=== PATIENT | male | born 1980 | race Caucasian/White ===

== ENCOUNTER 2021-08-06 14:50 | Emergency (ER) | payer OTHER ==
[~2021-08-06 14:50] MED LIST: BACTRIM DS TAB1 EACH PO; BACTROBAN OINT22 GM EXT; KEFLEX CAP 500500 MG PO
[2021-08-06 16:11] LABS: HEMOGLOBIN 14.6 gm/dl (14.0-17.5); RED BLOOD COUNT 4.91 M/UL (4.20-5.50); WHITE BLOOD COUNT 5.7 K/UL (4.5-11.0)
[2021-08-06 16:45] LABS: BUN/CREATININE RATIO 17 (0-10)
[2021-08-06] MEDS ORDERED: IBUPROFEN800 MG PO (18:38)
== END 2021-08-06 19:25 | disposition home or self-care (01) ==
LOC: ER1 14:50
PROVIDERS: Physician Assistant
DX: S16.1XXA Strain of muscle, fascia and tendon at neck level, initial encounter (principal); S00.83XA Contusion of other part of head, initial encounter; S70.02XA Contusion of left hip, initial encounter; S40.011A Contusion of right shoulder, initial encounter; M51.36 Other intervertebral disc degeneration, lumbar region; I10 Essential (primary) hypertension; F17.200 Nicotine dependence, unspecified, uncomplicated; V49.9XXA Car occupant (driver) (passenger) injured in unspecified traffic accident, initial encounter
CPT/HCPCS: 70450; 70486; 71260; 72125; 72131; 73030; 73502; 80053; 81001; 82550; 82553; 83690; 84484; 85025; 93005; 96374; 99284; J1885; Q9967

== ENCOUNTER 2021-11-07 19:48 | Inpatient (IN) | payer OTHER ==
[~2021-11-07] VITALS: Ht 152.4 cm; Wt 79.4 kg
[~2021-11-07 19:48] MED LIST changes: +IBUPROFEN800 MG PO
[2021-11-07 20:36] LABS: HEMOGLOBIN 14.7 gm/dl (14.0-17.5); RED BLOOD COUNT 4.86 M/UL (4.20-5.50); WHITE BLOOD COUNT 11.7 K/UL (4.5-11.0)
[2021-11-07 20:50] LABS: BUN/CREATININE RATIO 18 (0-10)
[2021-11-09 05:07] LABS: HEMOGLOBIN 12.2 gm/dl (14.0-17.5); RED BLOOD COUNT 4.11 M/UL (4.20-5.50); WHITE BLOOD COUNT 7.1 K/UL (4.5-11.0)
[2021-11-09 05:13] LABS: BUN/CREATININE RATIO 22 (0-10)
[2021-11-10] MEDS ORDERED: ENDOCET 10-3251 EACH PO (12:51)
[2021-11-10] MEDS ORDERED: ZOFRAN 4 MG TAB4 MG PO (12:51)
[2021-11-10] MEDS ORDERED: CYCLOBENZAPRINE10 MG PO (12:51)
[2021-11-11 04:47] LABS: HEMOGLOBIN 10.5 gm/dl (14.0-17.5)
[2021-11-11 04:50] LABS: RED BLOOD COUNT 3.57 M/UL (4.20-5.50); WHITE BLOOD COUNT 10.5 K/UL (4.5-11.0)
[2021-11-11 05:13] LABS: BUN/CREATININE RATIO 28 (0-10)
[2021-11-12 02:11] LABS: HEMOGLOBIN 10.5 gm/dl (14.0-17.5); RED BLOOD COUNT 3.55 M/UL (4.20-5.50); WHITE BLOOD COUNT 11.3 K/UL (4.5-11.0)
[2021-11-12 02:27] LABS: BUN/CREATININE RATIO 31 (0-10)
[2021-11-13 05:23] LABS: HEMOGLOBIN 10.7 gm/dl (14.0-17.5); RED BLOOD COUNT 3.63 M/UL (4.20-5.50)
[2021-11-13 05:27] LABS: WHITE BLOOD COUNT 5.5 K/UL (4.5-11.0)
[2021-11-13 05:52] LABS: BUN/CREATININE RATIO 27 (0-10)
[2021-11-14 03:33] LABS: HEMOGLOBIN 10.8 gm/dl (14.0-17.5); RED BLOOD COUNT 3.73 M/UL (4.20-5.50); WHITE BLOOD COUNT 6.5 K/UL (4.5-11.0)
[2021-11-14 04:00] LABS: BUN/CREATININE RATIO 25 (0-10)
[2021-11-15 02:39] LABS: HEMOGLOBIN 12.5 gm/dl (14.0-17.5); RED BLOOD COUNT 4.22 M/UL (4.20-5.50); WHITE BLOOD COUNT 8.2 K/UL (4.5-11.0)
[2021-11-15 03:11] LABS: BUN/CREATININE RATIO 29 (0-10)
[2021-11-15] MEDS ORDERED: SULFAMETHOXAZO1 EACH PO ×2 (09:45→15:42)
[2021-11-15] MEDS ORDERED: LEVOFLOXACIN500 MG PO ×2 (09:45→15:42)
[2021-11-15] MEDS ORDERED: LISINOPRIL5 MG PO ×2 (09:45→15:42)
--- NOTE | 2021-11-15 15:16 | NUR ---
JUST SPOKE WITH PT HE HAS CHANGED HIS MIND ABOUT GOING TO REHAB. PT HAS VOICED THAT HE WOULD LIKE TO GO HOME AND THAT HIS PARTNER CAN TAKE CARE OF HIS BANDAGES. NOTIFIED CASE MANAGEMENT OF THE CHANGE IN PLACEMENT AND REFUSAL TO GO TO REHAB. WITH JAMES ON THE PHONE PT VOICED THAT THEY CAN AFFORD THE BANDAGES. JAMES NOTIFIED DR. HAGEN AND THE PT WILL BE DISCHARGED HOME WITH MEDICATIONS. PT SHOULD FOLLOW DISCHARGE INSTRUCTIONS AND SCHEDULED APPT FOR AFTER CARE DIRECTED BY PHYSICIAN. RETURN TO THE ER WITH NEW OR CHANGING SYMPTOMS.
== END 2021-11-15 16:07 | disposition home or self-care (01) | DRG 475 ==
LOC: ER1 19:48 → CDU 22:48 → M/S 22:48
PROVIDERS: Family Medicine; Internal Medicine; Orthopaedic Surgery; Physician Assistant; ADMIT Internal Medicine
PROC: 0S9C3ZZ Drainage of Right Knee Joint, Percutaneous Approach (ICD-10-PCS; 2021-11-07)
PROC: 0Y6C0Z1 Detachment at Right Upper Leg, High, Open Approach (ICD-10-PCS; principal; 2021-11-10 11:00)
DX: M00.861 Arthritis due to other bacteria, right knee (principal); F11.20 Opioid dependence, uncomplicated; M86.661 Other chronic osteomyelitis, right tibia and fibula; Z20.822 Contact with and (suspected) exposure to COVID-19; B95.62 Methicillin resistant Staphylococcus aureus infection as the cause of diseases classified elsewhere; D69.6 Thrombocytopenia, unspecified; G89.29 Other chronic pain; I10 Essential (primary) hypertension; F17.210 Nicotine dependence, cigarettes, uncomplicated; B19.20 Unspecified viral hepatitis C without hepatic coma; W18.30XA Fall on same level, unspecified, initial encounter; Z91.14 Patient's other noncompliance with medication regimen; Z98.890 Other specified postprocedural states; Z89.021 Acquired absence of right finger(s); Z88.6 Allergy status to analgesic agent; Z82.49 Family history of ischemic heart disease and other diseases of the circulatory system
CPT/HCPCS: 36415; 72170; 73564; 73700; 80048; 80053; 80202; 80307; 81001; 82550; 82553; 83605; 83735; 84484; 85025; 85027; 86140; 87040; 87070; 87077; 87186; 87205; 93005; 96374; 96375; 96376; 97116-GP-CQ; 97161; 97165; 99285; G0480; J0696; J1100; J1170; J1650; J1885; J2001; J2250; J2270; J2405; J2704; J2710; J2795; J3010; J3370; J7070; U0002